=== PATIENT | female | born 1995 | race Caucasian/White ===

== ENCOUNTER 2023-10-21 06:15 | Day surgery (SDC) | payer OTHER, BC, SELFPAY ==
[2023-10-21] VITALS (10 sets, daily range): BP systolic 122–140; BP diastolic 64–81; BMI 32.2
[2023-10-21] MEDS: CELEBREX 200 MG PO (11:27)
[2023-10-21] MEDS: TYLENOL 1000 MG PO (11:28)
[2023-10-21] MEDS: NORMOSOL-R 1000 IV (11:31)
[2023-10-21] MEDS: SUBLIMAZE 25 MCG IV (14:45)
== END 2023-10-21 16:15 | disposition home or self-care (01) ==
LOC: SDS 06:15
PROVIDERS: ATTENDING PHYSICIAN Orthopaedic Surgery; FAMILY PHYSICIAN Nurse Practitioner Adult Health
DX: S83.512A Sprain of anterior cruciate ligament of left knee, initial encounter (principal); X58.XXXA Exposure to other specified factors, initial encounter
CPT/HCPCS: 29888; C1713